=== PATIENT | female | born 1990 | race Caucasian/White ===

== ENCOUNTER → 2018-01-08 | Outpatient (CLI) | payer OTHER ==
[~2018-01-08] MED LIST: ACYC800 PO; IBUP800 PO; OXYACE7.5T PO
[2018-01-09 09:40] LABS: Source Cervix
[2018-01-09 09:47] LABS: Source Cervix
== END | disposition home or self-care (01) ==
LOC: LAB 15:48 → LAB SHORT 15:48
PROVIDERS: Obstetrics & Gynecology
DX: Z34.81 Encounter for supervision of other normal pregnancy, first trimester (principal)
CPT/HCPCS: 87491; 87591; 87661; G0123